=== PATIENT | female | born 1990 | race Caucasian/White ===

== ENCOUNTER 2017-07-31 16:13 | Emergency (ER) | payer SELFPAY ==
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
--- NOTE | 2017-07-31 17:13 | RADIOLOGY REPORT (SQ) ---
EXAM DESCRIPTION: CT HEAD WITHOUT COMPLETED DATE/TIME: 07/31/2017 5:05 pm REASON FOR STUDY: ams COMPARISON: None. TECHNIQUE: Axial images acquired through the brain without intravenous contrast. Images reviewed wi th bone, brain and subdural windows. Additional sagittal and coronal reconstructions were generated. Images stored on PACS. All CT scanners at this facility use dose modulation, iterative reconstruction, and/or weight based d osing when appropriate to reduce radiation dose to as low as reasonably achievable (ALARA). [facility]: Dose Right [facility]: CareDose [facility]: Dose Right [facility]: Teradose 4D [facility]: [employer] RADIATION DOSE: CT Rad equipment meets quality standard of care and radiation dose reduction techniq ues were employed. CTDIvol: 53.2 mGy. DLP: 1044 mGy-cm. mGy. LIMITATIONS: None. FINDINGS: VENTRICLES: Normal size and contour. CEREBRUM: No masses. No hemorrhage. No midline shift. No evidence for acute infarction. Normal gra y/white matter differentiation. No areas of low density in the white matter. CEREBELLUM: No masses. No hemorrhage. No alteration of density. No evidence for acute infarction. EXTRAAXIAL SPACES: No fluid collections. No masses. ORBITS AND GLOBE: No intra- or extraconal masses. Normal contour of globe without masses. CALVARIUM: No fracture. PARANASAL SINUSES: No fluid or mucosal thickening. SOFT TISSUES: No mass or hematoma. OTHER: No other significant finding. IMPRESSION: NORMAL BRAIN CT WITHOUT CONTRAST. EVIDENCE OF ACUTE STROKE: NO. COMMENT: Quality ID # [id number]: Final reports with documentation of one or more dose reduction techniques (e.g., Automated exposure control, adjustment of the mA and/or kV according to patient size, use of iterative reconstruction technique) TECHNICAL DOCUMENTATION: JOB ID: [id number] [employer]- All Rights Reserved Reading location - IP/workstation name: [email or web address]
[2017-07-31] MEDS ORDERED: NORMAL SALINE 1000 ML 1,000 ML IV ONE (17:15)
--- NOTE | 2017-07-31 17:17 | RADIOLOGY REPORT (SQ) ---
EXAM DESCRIPTION: CT CERVICAL SPINE WITHOUT COMPLETED DATE/TIME: 07/31/2017 5:10 pm REASON FOR STUDY: ams COMPARISON: 07/02/2014 TECHNIQUE: Axial images acquired through the cervical spine without intravenous contrast. Images re viewed with lung, soft tissue and bone windows. Reconstructed coronal and sagittal MPR images review ed. Images stored on PACS. All CT scanners at this facility use dose modulation, iterative reconstruction, and/or weight based d osing when appropriate to reduce radiation dose to as low as reasonably achievable (ALARA). [facility]: Dose Right [facility]: CareDose [facility]: Dose Right [facility]: Teradose 4D [facility]: [employer] RADIATION DOSE: CT Rad equipment meets quality standard of care and radiation dose reduction techniq ues were employed. CTDIvol: 15.7 mGy. DLP: 400 mGy-cm. mGy. LIMITATIONS: None. FINDINGS: ALIGNMENT: Anatomic. MINERALIZATION: Normal. VERTEBRAL BODIES: No fractures or dislocation. DISCS: No significant disc disease. FACETS, LATERAL MASSES, POSTERIOR ELEMENTS: No fractures. No dislocation. No acute findings. HARDWARE: None in the spine. VISUALIZED RIBS: No fractures. LUNG APICES AND SOFT TISSUES: No significant or acute findings. OTHER: No other significant finding. IMPRESSION: NO ACUTE OR SIGNIFICANT FINDINGS IN THE CERVICAL SPINE. TECHNICAL DOCUMENTATION: JOB ID: [id number] Quality ID # [id number]: Final reports with documentation of one or more dose reduction techniques (e.g., Au tomated exposure control, adjustment of the mA and/or kV according to patient size, use of iterative reconstruction technique) 2010 [employer]- All Rights Reserved Reading location - IP/workstation name: [email or web address]
--- NOTE | 2017-07-31 17:28 | RADIOLOGY REPORT (SQ) ---
EXAM DESCRIPTION: CHEST SINGLE VIEW COMPLETED DATE/TIME: 07/31/2017 5:18 pm REASON FOR STUDY: ams COMPARISON: None. NUMBER OF VIEWS: One view. TECHNIQUE: Single frontal radiographic view of the chest acquired. LIMITATIONS: None. FINDINGS: LUNGS AND PLEURA: No opacities, masses or pneumothorax. No pleural effusion. MEDIASTINUM AND HILAR STRUCTURES: No masses. Contour normal. HEART AND VASCULAR STRUCTURES: Heart normal in size. Normal vasculature. BONES: No acute findings. HARDWARE: None in the chest. OTHER: No other significant finding. IMPRESSION: NO SIGNIFICANT RADIOGRAPHIC FINDING IN THE CHEST. TECHNICAL DOCUMENTATION: JOB ID: [id number] [employer]- All Rights Reserved Reading location - IP/workstation name: [email or web address]
[2017-07-31 17:36] LABS: ABSOLUTE BASOPHILS # (AUTO) 0.1 10^3/uL (0.0-0.2); ABSOLUTE EOSINOPHILS # (AUTO) 0.1 10^3/uL (0.0-0.6); ABSOLUTE LYMPHOCYTES (AUTO) 1.3 10^3/uL (0.5-4.7); ABSOLUTE MONOCYTES (AUTO) 0.7 10^3/uL (0.1-1.4); ABSOLUTE NEUT (AUTO) 9.8 10^3/uL (1.7-8.2); BASOPHILS % (AUTO) 0.7 % (0-2); EOSINOPHILS % (AUTO) 0.5 % (0-6); HEMATOCRIT 44.5 % (36.0-47.0); HEMOGLOBIN 15.9 g/dL (12.0-15.5); LYMPHOCYTES % (AUTO) 10.9 % (13-45); MEAN CORPUSCULAR HEMOGLOBIN 33.1 pg (27.0-33.4); MEAN CORPUSCULAR HGB CONC 35.6 g/dL (32.0-36.0); MEAN CORPUSCULAR VOLUME 93 fl (80-97); MONOCYTES % (AUTO) 5.8 % (3-13); PLATELET COUNT 371 10^3/uL (150-450); RED CELL DISTRIBUTION WIDTH 13.3 % (11.5-14.0); SEGMENTED NEUTROPHILS % (AUTO) 82.1 % (42-78); TOTAL CELLS COUNTED % (AUTO) 100 %; WHITE BLOOD COUNT 11.9 10^3/uL (4.0-10.5)
[2017-07-31] MEDS ORDERED: DIPH/PERTUSS(ACELL)/TETANUS VAC/PF 0.5 ML SYR (>=10YO) IM ONE (18:37)
[2017-07-31 19:11] LABS: APPEARANCE,URINE SLIGHTLY-CLOUDY; BILIRUBIN,URINE NEGATIVE (NEGATIVE); COLOR,URINE YELLOW; GLUCOSE, URINE NEGATIVE (NEGATIVE); KETONES,URINE NEGATIVE (NEGATIVE); LEUKOCYTE ESTERASE,URINE NEGATIVE (NEGATIVE); NITRITE,URINE NEGATIVE (NEGATIVE); PROTEIN,URINE NEGATIVE (NEGATIVE); URINE SPECIFIC GRAVITY 1.013; UROBILINOGEN,URINE NEGATIVE mg/dL (<2.0)
[2017-07-31 19:28] LABS: URINE BARBITURATES SCREEN NEGATIVE; URINE MARIJUANA (THC) SCREEN NEGATIVE; URINE METHADONE SCREEN NEGATIVE; URINE PHENCYCLIDINE SCREEN NEGATIVE
[2017-07-31 19:47] LABS: URINE BENZODIAZEPINES SCREEN UNCONFIRMED POSITIVE; URINE COCAINE SCREEN UNCONFIRMED POSITIVE
[2017-07-31 20:12] LABS: ALANINE AMINOTRANSFERASE 70 U/L (9-52); ALBUMIN 4.7 g/dL (3.5-5.0); ALKALINE PHOSPHATASE 41 U/L (38-126); ANION GAP 17 (5-19); ASPARTATE AMINO TRANSFERASE 65 U/L (14-36); BILIRUBIN,DIRECT 0.4 mg/dL (0.0-0.4); BILIRUBIN,TOTAL 1.1 mg/dL (0.2-1.3); BLOOD UREA NITROGEN 17 mg/dL (7-20); CALCIUM 9.7 mg/dL (8.4-10.2); CARBON DIOXIDE 21 mmol/L (22-30); CHLORIDE 107 mmol/L (98-107); GLUCOSE 106 mg/dL (75-110); POTASSIUM 3.7 mmol/L (3.6-5.0); SODIUM 145.4 mmol/L (137-145); TOTAL PROTEIN 8.4 g/dL (6.3-8.2)
[2017-07-31 20:13] LABS: ACETAMINOPHEN < 10 ug/mL (10-30); ALCOHOL < 10 mg/dL (NONE DETECTED); SALICYLATE < 1.0 mg/dL (2.0-20.0)
--- NOTE | 2017-08-01 08:28 | EKG REPORT ---
SEVERITY:- BORDERLINE ECG - SINUS RHYTHM PROBABLE LEFT ATRIAL ABNORMALITY : Confirmed by: Roxy Quiroz 01-Aug-2017 08:27:06
--- NOTE | 2017-08-01 08:50 | PSYCHOLOGICAL NOTE ---
Psych Note - Psych Note Psych Note: Reason for consult: Altered Mental Status; substance abuse 27-year-old female with hepatitis B presents via EMS after being found on the side of the road altered, agitated and with multiple abrasions throughout her body. Prior to arrival patient received 2.5 mg of Versed, 5 mg of Haldol, and 25 mg of Benadryl IM. Upon arrival patient is somnolent, arousable but not cooperative with exam or history. She will briefly open her eyes and then go back to sleep. Patient disclosed that she remembers getting "panicky" staying in the house so left the home. She reports that she went to "different places." Patient admits to losing some time and asked how long she has been at the hospital. Patient denies using any drugs stating "I am pretty sure I did not do any meth... I did have some kind drink."When asked if patient felt altered at the drink she stated "a little bit." Patient denies any suicidal or homicidal thoughts. She has no memory of how she received the abrasions across her body. Patient states that she went to substance abuse treatment and has been sober for "a long time." When asked to further explain what "a long time" means to her, she stated she has been sober months. She was unable to give an exact timeframe. Patient is willing to take information on substance abuse treatment but is uninterested in going inpatient at this time. Patient denies suicidal and homicidal ideation. Patient is alert and orientated to person, place, time and circumstance. Mood is euthymic with congruent affect. Patient denies suicidal and homicidal ideation. Delusions are absent behaviors congruent with intact reality based presentation i.e. organized and linear thought processes. Eye contact was well- maintained. Conversational speech was within normal rate, tone and prosody. Intellectual abilities appear to be within the average range. Attention and concentration were good. Insight, judgment, impulse control are poor due to substance abuse. Clinician spoke with patient's mother. She reports the patient "took off Wednesday morning." She has a history of substance abuse; "not even sure all of the drugs she has used, I know it started with pills...not sure what she is using now...started at [age] years old...been acting strange, been off, I know she is doing something, just started within this past week." She reports the patient has been IVC twice in the past because of the substance abuse; "She is not crazy, its these drugs." No medication recommendations at this time Diagnosis Polysubstance abuse 292.9 (F11.99) unspecified opiate related disorder per history provided by patient's mother 292.9 (F14.99) unspecified stimulant related disorder; methamphetamine per history provided by patient 292.9 (F14.99) unspecified stimulant related disorder; cocaine Impression\\plan: Patient is recommended for rescind of IVC is cleared from acute psychiatric services. Patient denies suicidal homicidal ideation. Patient has history of substance abuse and while currently denies relapse, toxicology screening indicates multiple substance use. Patient's mother confirms the patient history and believes she has started using again about one week ago as evidenced by her change in character and behaviour. Patient is recommended to follow up with substance abuse treatment. Patient's father will be picking up the patient. Dr Akers was consulted on the care and management of this patient; attending physician is agreement with recommendations and disposition.
--- NOTE | 2017-08-01 09:37 | ER Document Report ---
Doctor's Note Notes: 08/01/17 09:36 27-year-old female brought in last night found wandering the streets with altered mental status due to drug use. Long history of drug abuse. Patient is not suicidal. Her father is coming to pick her up to take her home sometime this morning.
[2017-08-01 09:51] VITALS: BP 109/83
== END 2017-08-01 09:56 | disposition home or self-care (01) ==
LOC: ER 16:13
DX: F11.10 Opioid abuse, uncomplicated (principal); F15.10 Other stimulant abuse, uncomplicated; R40.4 Transient alteration of awareness; S00.81XA Abrasion of other part of head, initial encounter; S10.91XA Abrasion of unspecified part of neck, initial encounter; S20.319A Abrasion of unspecified front wall of thorax, initial encounter; S30.811A Abrasion of abdominal wall, initial encounter; S80.812A Abrasion, left lower leg, initial encounter; S80.811A Abrasion, right lower leg, initial encounter; X58.XXXA Exposure to other specified factors, initial encounter; D72.829 Elevated white blood cell count, unspecified; Z23 Encounter for immunization
CPT/HCPCS: 93005; 99285; 96360; 36415; 80307 ×4; 85025; 81025; 80053; 81001; 85379; 71045; 70450; 72125; 93010; J7030

== ENCOUNTER 2019-03-08 11:21 | Emergency (ER) | payer SELFPAY ==
[2019-03-08] MEDS ORDERED: ONDANSETRON 4 MG TAB.RAPDIS PO ONE (11:46)
--- NOTE | 2019-03-08 11:50 | ER Document Report ---
ED Medical Screen (RME) - General Chief Complaint: Epigastric Pain Stated Complaint: RIB PAIN Time Seen by Provider: 03/08/19 11:38 Primary Care Provider: AFTAB LORD FNP [Primary Care Provider] - Follow up as needed Mode of Arrival: Ambulatory Information source: Patient Notes: 28-year-old female presents emergency department with complaints of chest pain a nd vomiting for the past 2 days. She reports she shot up heroin Wednesday night early Wednesday. Apparently she had CPR done on her for over 10 minutes. They did use Narcan. Patient declined to come to the emergency department. Patient reports since that time she has been in bed her chest wall hurts and she has been vomiting. I have greeted and performed a rapid initial assessment of this patient. A comprehensive ED assessment and evaluation of the patient, analysis of test results and completion of the medical decision making process will be conducted by additional ED providers. TRAVEL OUTSIDE OF THE [place] IN LAST 30 DAYS: No - Related Data Allergies/Adverse Reactions: No Known Allergies Allergy (Verified 03/08/19 11:38) Past Medical History - Social History Chew tobacco use (# tins/day): No Frequency of alcohol use: Rare Drug Abuse: None Renal/ Medical History: Denies: Hx Peritoneal Dialysis GI Medical History: Reports: Hx Hepatitis Infectious Medical History: Reports: Hx Hepatitis Past Surgical History: Reports: Hx Tonsillectomy - Immunizations Hx Diphtheria, Pertussis, Tetanus Vaccination: Yes Physical Exam - Vital signs Vitals: Temp Pulse Resp BP Pulse Ox 98.6 F 82 20 120/83 100 03/08/19 11:03/08/19 11:03/08/19 11:03/08/19 11:03/08/19 11:28 Course - Vital Signs Vital signs: Temp Pulse Resp BP Pulse Ox 98.6 F 82 20 120/83 100 03/08/19 11:28 03/08/19 11:28 03/08/19 11:28 03/08/19 11:28 03/08/19 11:28 Doctor's Discharge - Discharge Referrals: AFTAB LORD FNP [Primary Care Provider] - Follow up as needed
--- NOTE | 2019-03-08 12:58 | RADIOLOGY REPORT (SQ) ---
EXAM DESCRIPTION: CHEST 2 VIEWS COMPLETED DATE/TIME: 03/08/2019 11:38 am REASON FOR STUDY: recent CPR chest pain COMPARISON: 07/31/2017 EXAM PARAMETERS: NUMBER OF VIEWS: two views TECHNIQUE: Digital Frontal and Lateral radiographic views of the chest acquired. RADIATION DOSE: NA LIMITATIONS: none FINDINGS: LUNGS AND PLEURA: No opacities, masses or pneumothorax. No pleural effusion. MEDIASTINUM AND HILAR STRUCTURES: No masses or contour abnormalities. HEART AND VASCULAR STRUCTURES: Heart normal size. No evidence for failure. BONES: No acute findings. HARDWARE: None in the chest. OTHER: No other significant finding. IMPRESSION: NO ACUTE RADIOGRAPHIC FINDING IN THE CHEST. TECHNICAL DOCUMENTATION: JOB ID: [id number] [employer]- All Rights Reserved Reading location - IP/workstation name: [email or web address]
[2019-03-08 15:48] LABS: ABSOLUTE BASOPHILS # (AUTO) 0.1 10^3/uL (0.0-0.2); ABSOLUTE EOSINOPHILS # (AUTO) 0.3 10^3/uL (0.0-0.6); ABSOLUTE LYMPHOCYTES (AUTO) 2.2 10^3/uL (0.5-4.7); ABSOLUTE MONOCYTES (AUTO) 0.4 10^3/uL (0.1-1.4); ABSOLUTE NEUT (AUTO) 6.5 10^3/uL (1.7-8.2); BASOPHILS % (AUTO) 1.3 % (0-2); EOSINOPHILS % (AUTO) 3.1 % (0-6); HEMATOCRIT 43.3 % (36.0-47.0); HEMOGLOBIN 14.9 g/dL (12.0-15.5); LYMPHOCYTES % (AUTO) 23.2 % (13-45); MEAN CORPUSCULAR HEMOGLOBIN 34.6 pg (27.0-33.4); MEAN CORPUSCULAR HGB CONC 34.4 g/dL (32.0-36.0); MEAN CORPUSCULAR VOLUME 101 fl (80-97); MONOCYTES % (AUTO) 4.1 % (3-13); PLATELET COUNT 453 10^3/uL (150-450); RED CELL DISTRIBUTION WIDTH 13.6 % (11.5-14.0); SEGMENTED NEUTROPHILS % (AUTO) 68.3 % (42-78); TOTAL CELLS COUNTED % (AUTO) 100 %; WHITE BLOOD COUNT 9.5 10^3/uL (4.0-10.5)
[2019-03-08] MEDS ORDERED: KETOROLAC TROMETHAMINE INJ/PF 30 MG/1 ML SDV IV ONE (16:01)
[2019-03-08 16:03] LABS: ALBUMIN 4.4 g/dL (3.5-5.0); ALKALINE PHOSPHATASE 45 U/L (38-126); ANION GAP 9 (5-19); ASPARTATE AMINO TRANSFERASE 77 U/L (14-36); BILIRUBIN,DIRECT 0.2 mg/dL (0.0-0.4); BILIRUBIN,TOTAL 0.5 mg/dL (0.2-1.3); BLOOD UREA NITROGEN 13 mg/dL (7-20); CALCIUM 9.4 mg/dL (8.4-10.2); CARBON DIOXIDE 29 mmol/L (22-30); CHLORIDE 100 mmol/L (98-107); GLUCOSE 89 mg/dL (75-110); POTASSIUM 4.5 mmol/L (3.6-5.0); TOTAL PROTEIN 8.2 g/dL (6.3-8.2)
--- NOTE | 2019-03-08 16:21 | ER Document Report ---
ED General - General Chief Complaint: Epigastric Pain Stated Complaint: RIB PAIN Time Seen by Provider: 03/08/19 11:38 Primary Care Provider: AFTAB LORD FNP [NO LOCAL MD] - Follow up as needed Mode of Arrival: Ambulatory TRAVEL OUTSIDE OF THE [place] IN LAST 30 DAYS: No - HPI Onset: Yesterday Onset/Duration: Sudden Quality of pain: Achy Severity: Moderate Pain Level: 4 Context: 28 year old female reports using heroin - injected - for the first time the other night. EMS was called as she went out. Her friend began CPR and pushed on her chest. She refused EMS transport. "I was stubborn." She denies si gnificant PMH. No fever. - Related Data Allergies/Adverse Reactions: No Known Allergies Allergy (Verified 03/08/19 11:38) Past Medical History - General Information source: Patient - Social History Smoking Status: Former Smoker Chew tobacco use (# tins/day): No Frequency of alcohol use: Rare Drug Abuse: None Family History: Reviewed & Not Pertinent Patient has suicidal ideation: No Patient has homicidal ideation: No Renal/ Medical History: Denies: Hx Peritoneal Dialysis GI Medical History: Reports: Hx Hepatitis Infectious Medical History: Reports: Hx Hepatitis Past Surgical History: Reports: Hx Tonsillectomy - Immunizations Hx Diphtheria, Pertussis, Tetanus Vaccination: Yes Review of Systems - Review of Systems Constitutional: No symptoms reported EENT: No symptoms reported Cardiovascular: No symptoms reported Respiratory: No symptoms reported Gastrointestinal: No symptoms reported Genitourinary: No symptoms reported Female Genitourinary: No symptoms reported Musculoskeletal: No symptoms reported Skin: No symptoms reported Hematologic/Lymphatic: No symptoms reported Neurological/Psychological: No symptoms reported Physical Exam - Vital signs Vitals: Temp Pulse Resp BP Pulse Ox 98.6 F 82 20 120/83 100 03/08/19 11:26 03/08/19 11:26 03/08/19 11:26 03/08/19 11:26 03/08/19 11:26 Interpretation: Normal - General General appearance: Appears well, Alert - HEENT Head: Normocephalic, Atraumatic Eyes: Normal Pupils: PERRL - Respiratory Respiratory status: No respiratory distress Chest status: Tender. No: Nontender - ttp over ribs laterally and sternum without crepitance or step off. Breath sounds: Normal Chest palpation: Normal - Cardiovascular Rhythm: Regular Heart sounds: Normal auscultation Murmur: No - Abdominal Inspection: Normal Distension: No distension Bowel sounds: Normal Tenderness: Nontender Organomegaly: No organomegaly - Back Back: Normal, Nontender - Extremities General upper extremity: Normal inspection, Nontender, Normal color, Normal ROM, Normal temperature General lower extremity: Normal inspection, Nontender, Normal color, Normal ROM, Normal temperature, Normal weight bearing. No: Erika's sign - Neurological Neuro grossly intact: Yes Cognition: Normal Orientation: AAOx4 Azul Coma Scale Eye Opening: Spontaneous [place]ul Coma Scale Verbal: Oriented [place] Coma Scale Motor: Obeys Commands Azul Coma Scale Total: 15 Speech: Normal Motor strength normal: LUE, RUE, LLE, RLE Sensory: Normal - Psychological Associated symptoms: Normal affect, Normal mood - Skin Skin Temperature: Warm Skin Moisture: Dry Skin Color: Normal Course - Re-evaluation Re-evalutation: 03/08/19 16:20 MDM Discussed with pt no narcotic treatment and she expressed understanding. Discussed likely lengthy period of time for improvement of chest wall/ rib injury. - Vital Signs Vital signs: Temp Pulse Resp BP Pulse Ox 98.5 F 71 20 119/86 H 98 03/08/19 17:01 03/08/19 17:01 03/08/19 11:28 03/08/19 17:01 03/08/19 17:01 - Laboratory Result Diagrams: 03/08/19 15:12 03/08/19 15:12 Laboratory results interpreted by me: 03/08/19 03/08/19 15:12 15:12 MCV 101 H MCH 34.6 H Plt Count 453 H Creatinine 0.48 L AST 77 H - Diagnostic Test Radiology reviewed: Reports reviewed - EKG Interpretation by Me EKG shows normal: Sinus rhythm Rate: Normal Rhythm: NSR Voltage: No: Increased voltage P Waves: No: TIMOTEO Heart block present: No: 1st Degree - NSR Nl [place] no st elevation or depression my interpretation. Discharge - Discharge Clinical Impression: Heroin abuse, Chest wall discomfort Condition: Good Disposition: HOME, SELF-CARE Instructions: Chest Wall Pain ([facility]), Narcotic Abuse ([facility]) Additional Instructions: Take the medicine as directed. Rest. Tylenol or motrin as likely best. Please return here for any chest pain, shortness of breath or other problems or concerns. Prescriptions: Cyclobenzaprine HCl 5 mg PO TID #15 tablet Ibuprofen [Motrin 600 mg Tablet] 600 mg PO TID #30 tablet Naloxone HCl [Narcan] 4 mg NS ASDIR PRN 1 Days spray PRN Reason: Referrals: AFTAB LORD FNP [NO LOCAL MD] - Follow up as needed
[2019-03-08 17:06] VITALS: BP 119/86
[2019-03-08 18:06] LABS: AMORPHOUS SEDIMENT,URINE 1+ /HPF; APPEARANCE,URINE TURBID; BILIRUBIN,URINE NEGATIVE (NEGATIVE); COLOR,URINE YELLOW; GLUCOSE, URINE NEGATIVE (NEGATIVE); KETONES,URINE NEGATIVE (NEGATIVE); LEUKOCYTE ESTERASE,URINE NEGATIVE (NEGATIVE); NITRITE,URINE NEGATIVE (NEGATIVE); PROTEIN,URINE NEGATIVE (NEGATIVE); URINE SPECIFIC GRAVITY 1.019; UROBILINOGEN,URINE NEGATIVE mg/dL (<2.0)
--- NOTE | 2019-03-09 09:36 | EKG REPORT ---
SEVERITY:- NORMAL ECG - SINUS RHYTHM : Confirmed by: Roxy Quiroz 09-Mar-2019 09:35:41
== END 2019-03-08 17:07 | disposition home or self-care (01) ==
LOC: ER 11:21
DX: F11.10 Opioid abuse, uncomplicated (principal); R07.89 Other chest pain; R10.13 Epigastric pain; R07.81 Pleurodynia; Z87.891 Personal history of nicotine dependence
CPT/HCPCS: 93005; 99284; 96374; 36415; 85025; 81025; 80053; 81001; 84484; 71046; 93010; S0119; J1885

== ENCOUNTER 2019-03-10 21:25 | Emergency (ER) | payer SELFPAY ==
--- NOTE | 2019-03-10 23:48 | ER Document Report ---
ED Substance Abuse / Acc. OD - General Chief Complaint: ETOH Abuse Stated Complaint: ETOH Time Seen by Provider: 03/10/19 23:40 Notes: Patient is a 28-year-old female that comes emergency department for chief complaint of alcohol intoxication, in addition to this patient is under arrest, law enforcement is at bedside, esvin celaya states that at 2049 patient had an alcohol level of 0.29 on breathalyzer testing. They state that as a result patient was by protocol with too intoxicated for detention, she was brought here to have her alcohol level tested to make sure she was low enough to be placed in incarceration. Patient is very compliant, she states she wants her alcohol level tested because she thinks the breathalyzer test is inaccurate. Patient denies any injury, denies vomiting, denies any other complaints. She denies recreational drugs, she states she is on cyclobenzaprine and no other daily medications. She denies . Officer also denies any injuries. TRAVEL OUTSIDE OF THE [place] IN LAST 30 DAYS: No - Related Data Allergies/Adverse Reactions: No Known Allergies Allergy (Verified 03/08/19 11:38) Past Medical History - General Information source: Patient - Social History Smoking Status: Former Smoker Frequency of alcohol use: Rare Lives with: Family Family History: Reviewed & Not Pertinent Patient has suicidal ideation: No Patient has homicidal ideation: No - Medical History Medical History: Negative Renal/ Medical History: Denies: Hx Peritoneal Dialysis GI Medical History: Reports: Hx Hepatitis Infectious Medical History: Reports: Hx Hepatitis Past Surgical History: Reports: Hx Tonsillectomy - Immunizations Hx Diphtheria, Pertussis, Tetanus Vaccination: Yes Review of Systems - Review of Systems Constitutional: See HPI EENT: No symptoms reported Cardiovascular: No symptoms reported Respiratory: No symptoms reported Gastrointestinal: No symptoms reported Genitourinary: No symptoms reported Female Genitourinary: No symptoms reported Musculoskeletal: No symptoms reported Skin: No symptoms reported Hematologic/Lymphatic: No symptoms reported Neurological/Psychological: See HPI Physical Exam - Vital signs Vitals: Temp Pulse BP Pulse Ox 98.3 F 99 116/77 100 03/10/19 21:44 03/10/19 21:44 03/10/19 21:44 03/10/19 21:44 - Notes Notes: GENERAL: Alert, interacts well. No acute distress. HEAD: Normocephalic, atraumatic. EYES: Pupils equal, round, and reactive to light. Extraocular movements intact. ENT: Oral mucosa moist, tongue midline. Oropharynx unremarkable. Airway patent. Nares patent, no nasal septal hematoma, TM's intact. NECK: Full range of motion. Supple. Trachea midline. LUNGS: Clear to auscultation bilaterally, no wheezes, rales, or rhonchi. No respiratory distress. HEART: Regular rate and rhythm. No murmur ABDOMEN: Soft, non-tender. Non-distended. EXTREMITIES: Moves all 4 extremities spontaneously. No edema, normal radial and dorsalis pedis pulses bilaterally. No cyanosis. BACK: no cervical, thoracic, lumbar midline tenderness. No saddle anesthesia, n ormal distal neurovascular exam. Moves all extremities in full range of motion. NEUROLOGICAL: Alert and oriented x3. occasional slurred speech. Cranial nerves II through XII grossly intact. PSYCH: Normal affect, normal mood. Makes good eye contact, cooperative SKIN: Warm, dry, normal turgor. No rashes or lesions noted. Course - Re-evaluation Re-evalutation: Patient is being very cooperative and very agreeable. She was still cooperative and agreeable that lines worsened and actually removed her handcuffs even though she is still in their custody. Her vital signs are unremarkable, she has no current complaints. She does have some slurring of her words but she ambulates without unsteadiness. BMP unremarkable, test negative, alcohol level is elevated but I discussed the alcohol level with patient and law enforcement and this is low enough per their protocol I am told for patient to be taken into their custody. Because of her benign evaluation, lack of current symptoms, and work-up patient is medically cleared at this time. - Vital Signs Vital signs: Temp Pulse Resp BP Pulse Ox 98.3 F 98 18 111/72 96 03/11/19 00:59 03/11/19 00:59 03/11/19 00:59 03/11/19 00:59 03/11/19 00:59 - Laboratory Result Diagrams: 03/10/19 23:50 Discharge - Discharge Clinical Impression: Alcohol intoxication Qualifiers: Complication of substance-induced condition: uncomplicated Qualified Code(s): F10.920 - Alcohol use, unspecified with intoxication, uncomplicated Condition: Stable Disposition: HOME, SELF-CARE Additional Instructions: You have been medically cleared with your evaluation today. Avoid drinking alcohol to intoxication. Follow-up with primary care provider. Return for any concerning symptoms including vomiting, abdominal pain, chest pain, or if something is not right.
[2019-03-11 00:23] LABS: ALCOHOL 288 mg/dL (NONE DETECTED); ANION GAP 9 (5-19); BLOOD UREA NITROGEN 11 mg/dL (7-20); CARBON DIOXIDE 30 mmol/L (22-30); CHLORIDE 106 mmol/L (98-107); GLUCOSE 97 mg/dL (75-110); POTASSIUM 4.5 mmol/L (3.6-5.0)
[2019-03-11 01:02] VITALS: BP 111/72
== END 2019-03-11 00:59 | disposition home or self-care (01) ==
LOC: ER 21:25
DX: F10.120 Alcohol abuse with intoxication, uncomplicated (principal); Z87.891 Personal history of nicotine dependence
CPT/HCPCS: 36415; 80048; 80307; 84703; 99284

== ENCOUNTER 2019-04-10 14:30 | Emergency (ER) | payer SELFPAY ==
[2019-04-10 15:07] VITALS: BP 123/77
[2019-04-10] MEDS ORDERED: HYDROCODONE/ACETAMINOPHEN 5-325 MG TABLET PO ONE (15:19)
--- NOTE | 2019-04-10 15:23 | ER Document Report ---
HPI - HPI Patient complains to provider of: Wrist injury Time Seen by Provider: 04/10/19 15:13 Onset: Other - 3 days Onset/Duration: Persistent Quality of pain: Achy Pain Level: 4 Context: Patient states she was walking 3 days ago stepped in a hole and fell on outstretched hand. Patient complains of right hand and wrist swelling. Patient is left-hand dominant. Associated Symptoms: Other - Right wrist pain, wrist and hand swelling. denies: Fever, Nausea Exacerbated by: Movement Relieved by: Denies Similar symptoms previously: No Recently seen / treated by doctor: No - ROS ROS below otherwise negative: Yes Systems Reviewed and Negative: Yes All other systems reviewed and negative - CONSTITUTIONAL Constitutional: DENIES: Fever, Chills - NEURO Neurology: DENIES: Weakness - GASTROINTESTINAL Gastrointestinal: DENIES: Nausea - REPRODUCTIVE Reproductive: DENIES: : - MUSCULOSKELETAL Musculoskeletal: REPORTS: Extremity pain, Swelling - DERM Skin Color: Erythema Skin Problems: None Past Medical History - General Information source: Patient - Social History Smoking Status: Current Every Day Smoker Frequency of alcohol use: None Drug Abuse: None Lives with: Family Family History: Reviewed & Not Pertinent Patient has suicidal ideation: No Patient has homicidal ideation: No Renal/ Medical History: Denies: Hx Peritoneal Dialysis GI Medical History: Reports: Hx Hepatitis Infectious Medical History: Reports: Hx Hepatitis Past Surgical History: Reports: Hx Tonsillectomy - Immunizations Hx Diphtheria, Pertussis, Tetanus Vaccination: Yes Vertical Provider Document - CONSTITUTIONAL Agree With Documented VS: Yes Exam Limitations: No Limitations General Appearance: WD/WN, No Apparent Distress - INFECTION CONTROL TRAVEL OUTSIDE OF THE [place] IN LAST 30 DAYS: No - HEENT HEENT: Atraumatic, Normocephalic - NECK Neck: Normal Inspection, Supple - RESPIRATORY Respiratory: Breath Sounds Normal, No Respiratory Distress - CARDIOVASCULAR Cardiovascular: Regular Rate, Regular Rhythm - MUSCULOSKELETAL/EXTREMETIES Musculoskeletal/Extremeties: MAEW, Tender - Right wrist tenderness over distal radius and ulna with swelling, Edema - NEURO Level of Consciousness: Awake, Alert, Appropriate Motor/Sensory: No Motor Deficit - DERM Integumentary: Warm, Dry Notes: Patient with erythema to the dorsum of the right hand and wrist area. Patient does a few scattered lesions to the dorsum of the right hand and wrist. Course - Re-evaluation Re-evalutation: 04/10/19 16:52 Patient without any acute fracture noted on x-ray. Patient does have what looks to be possible excoriated rash to the dorsum of the hand, does not look worrisome for track nobles at this time. Patient does report a history of IV drug use but last use was 3 years ago. 04/10/19 17:[address] Hurst, who agrees to evaluate patient. 04/10/19 17:28 Dr. Hurst agrees with plan to treat with antibiotics and to have patient return in 2 days for recheck. Patient encouraged to return immediately for any worsening of symptoms. - Vital Signs Vital signs: Temp Pulse Resp BP Pulse Ox 98.6 F 83 20 123/77 98 04/10/19 15:06 04/10/19 15:06 04/10/19 15:06 04/10/19 15:06 04/10/19 15:06 - Diagnostic Test Radiology reviewed: Image reviewed, Reports reviewed Procedures - Immobilization Right Wrist Pre-Proc Neuro Vasc Exam: Normal Immobilizer type: Cock-up Performed by: PCT Post-Proc Neuro Vasc Exam: Normal Alignment checked and good: Yes Discharge - Discharge Clinical Impression: Sprain of wrist, right Qualifiers: Encounter type: initial encounter Qualified Code(s): S63.501A - Unspecified s prain of right wrist, initial encounter Cellulitis Qualifiers: Site of cellulitis: extremity Site of cellulitis of extremity: upper extremity Laterality: right Qualified Code(s): L03.113 - Cellulitis of right upper limb Condition: Stable Disposition: HOME, SELF-CARE Instructions: Cellulitis ([facility]), Wrist Sprain ([facility]), Temporary Splint ([facility]) Additional Instructions: Return immediately for any new or worsening symptoms: Fever, increased redness, increased swelling, or any concerning new symptoms Followup with orthopedics for any persistent pain or problems Return in 2 days for a recheck Prescriptions: Sulfamethoxazole/Trimethoprim [Bactrim Ds Tablet] 1 each PO BID #20 tablet Cephalexin Monohydrate [Keflex 500 mg Capsule] 500 mg PO Q6H 7 Days #28 capsule Naproxen [Naprosyn 250 Nmg Tablet] 1 tab PO BID #14 tablet Forms: Return to Work Referrals: [facility] [Provider Group] - Follow up as needed
--- NOTE | 2019-04-10 16:27 | RADIOLOGY REPORT (SQ) ---
EXAM DESCRIPTION: WRIST RIGHT 3 VIEWS COMPLETED DATE/TIME: 04/10/2019 4:04 pm REASON FOR STUDY: foosh COMPARISON: None. NUMBER OF VIEWS: Three views. TECHNIQUE: AP, lateral, and oblique radiographic images acquired of the right wrist. LIMITATIONS: None. FINDINGS: MINERALIZATION: Normal. BONES: No acute fracture or dislocation. SOFT TISSUES: Soft tissue swelling along the dorsal aspect of the hand and wrist. OTHER: No other finding. IMPRESSION: Soft tissue swelling along the dorsal aspect of the hand and wrist without an associated acute osseous abnormality. TECHNICAL DOCUMENTATION: JOB ID: [id number] 2011 [employer]- All Rights Reserved Reading location - IP/workstation name: [email or web address]
[2019-04-10] MEDS ORDERED: CEPHALEXIN 500 MG CAPSULE PO ONE (16:41)
[2019-04-10] MEDS ORDERED: SULFAMETHOXAZOLE/TRIMETHOPRIM 800-160 MG TABLET PO ONE (16:43)
== END 2019-04-10 17:37 | disposition home or self-care (01) ==
LOC: ER 14:30
DX: S63.501A Unspecified sprain of right wrist, initial encounter (principal); L03.113 Cellulitis of right upper limb; W17.2XXA Fall into hole, initial encounter; F17.200 Nicotine dependence, unspecified, uncomplicated
CPT/HCPCS: 99283